=== PATIENT | male | born 1965 | race Caucasian/White ===

== ENCOUNTER 2020-03-06 16:17 | Emergency (ER) | payer OTHER ==
[2020-03-06] MEDS ORDERED: HYDROMORPHONE HCL INJ/PF 2 MG/ML AMPULE IV ONE (17:19)
[2020-03-06] MEDS ORDERED: ONDANSETRON HCL INJ/PF 4 MG/2 ML SDV IV ONE (17:19)
--- NOTE | 2020-03-06 17:26 | ER Document Report ---
ED General - General Chief Complaint: Knee Injury Stated Complaint: FALL,RIGHT KNEE PAIN Time Seen by Provider: 03/06/20 17:00 - HPI Notes: Patient is a 54-year-old male, here on vacation from [place]. He was rinsing off his feet, coming off the beach, when he slipped. He states his leg slid backwards, underneath him. He does not believe he had a direct blow to the knee. He heard some loud pops. He states he is tried to bear weight on it since then but has been unable to do so. He denies hitting his head or losing consciousness. No neck or back pain. No other acute complaints or concerns. He currently puts his knee pain at an 8 out of 10. - Related Data Allergies/Adverse Reactions: No Known Allergies Allergy (Unverified 03/06/20 16:24) Home Medications: Allopurinol Past Medical History - General Information source: Patient - Social History Smoking Status: Never Smoker Chew tobacco use (# tins/day): No Frequency of alcohol use: Rare Drug Abuse: None Family History: CVA, Hyperlipidemia, Hypertension Patient has homicidal ideation: No Musculoskeletal Medical History: Reports Hx Gout Past Surgical History: Reports: Hx Orthopedic Surgery - Left hand, right foot Review of Systems - Review of Systems Musculoskeletal: See HPI -: Yes All other systems reviewed and negative Physical Exam - Vital signs Vitals: Temp Pulse Resp BP Pulse Ox 98.1 F 72 16 119/67 98 03/06/20 16:24 03/06/20 16:24 03/06/20 16:24 03/06/20 16:24 03/06/20 16:24 - Notes Notes: This is a pleasant 54-year-old male appears stated age, in no acute distress. Head is normocephalic and atraumatic, pupils are equal round, reactive to light. Mucosa is moist. Heart regular rate and rhythm, lungs are clear to auscultation bilaterally. Examination of the right knee yields a leg held in flexion at the hip and knee. He is obvious deformity noted at the knee with edema, consistent with effusion. Neurovascularly intact distally. Course - Re-evaluation Re-evalutation: 03/06/20 17:28 Patient presents to the emergency department for evaluation. He does appear to be in discomfort, rates his pain an 8 out of 10. He is given Dilaudid and Zofran. His x-ray appears to me to show an intra-articular tibial fracture. Awaiting official radiology read. Will likely place patient in knee immobilizer with crutches, send him back to [place] for further follow-up. 03/06/20 18:08 X-ray findings confirmed by radiology. Will place in a knee immobilizer with crutches. They are instructed on nonweightbearing and need for close follow-up with orthopod. They will be seen on Monday, have an orthopedic service they see in [place]. 03/06/20 18:56 Neurovascularly intact after placement of a knee immobilizer. - Vital Signs Vital signs: Temp Pulse Resp BP Pulse Ox 98.1 F 72 16 119/67 98 03/06/20 16:24 03/06/20 16:24 03/06/20 16:24 03/06/20 16:24 03/06/20 16:24 - Diagnostic Test Radiology reviewed: Image reviewed, Reports reviewed Radiology results interpreted by me: 03/06/20 18:56 Knee X-Ray 03/06/20 00:00 IMPRESSION: 1. Acute impacted comminuted intra-articular fracture of the lateral tibial plateau. Probable involvement of the lateral tibial spine. No definite medial tibial plateau component. 2. Small joint effusion probably lipohemarthrosis. Discharge - Discharge Clinical Impression: Right medial tibial plateau fracture Qualifiers: Encounter type: initial encounter Fracture type: closed Qualified Code(s): S82.131A - Displaced fracture of medial condyle of right tibia, initial encounter for closed fracture Condition: Stable Disposition: HOME, SELF-CARE Instructions: Use of Crutches (OM), Ice & Elevation (OM), Knee Immobilizing Splint ([facility]) Additional Instructions: Take [place] as needed for pain. Please take with food, watch for dizziness, drowsiness, constipation with this medication. Follow-up with an orthopod on Monday. Return to the emergency department with worsening or new concerning symptoms of any sort. Prescriptions: Hydrocodone/Acetaminophen [[place] 5-325 mg Tablet] 1 tab PO Q6HP PRN #16 tablet PRN Reason: For Pain Scale 4-5
--- NOTE | 2020-03-06 17:29 | RADIOLOGY REPORT (SQ) ---
EXAM DESCRIPTION: KNEE LEFT 4 VIEW IMAGES COMPLETED DATE/TIME: 03/06/2020 3:40 pm REASON FOR STUDY: fall COMPARISON: None. NUMBER OF VIEWS: Four views. TECHNIQUE: AP, cross-table lateral, right and left oblique radiographic images acquired of the left knee. LIMITATIONS: None. FINDINGS: MINERALIZATION: Normal. BONES: There is an acute minimally displaced impacted lateral tibial plateau fracture with fracture l ine likely extending to the lateral tibial spine. No definite medial tibial plateau component. The distal femur is intact. Proximal fibula is intact. JOINT: Small anterior joint effusion with fluid fat level consistent with lipohemarthrosis. SOFT TISSUES: Soft tissue swelling. OTHER: No other significant finding. IMPRESSION: 1. Acute impacted comminuted intra-articular fracture of the lateral tibial plateau. Probable involv ement of the lateral tibial spine. No definite medial tibial plateau component. 2. Small joint effusion probably lipohemarthrosis. TECHNICAL DOCUMENTATION: JOB ID: [id number] 2010 [employer]- All Rights Reserved Reading location - IP/workstation name: [email or web address]
[2020-03-06] MEDS ORDERED: HYDROCODONE/ACETAMINOPHEN 5-325 MG (6 TAB/ER DISP) PO PRN (18:07)
[2020-03-06 19:03] VITALS: BP 137/74
== END 2020-03-06 19:02 | disposition home or self-care (01) ==
LOC: ER 16:17
DX: S82.131A Displaced fracture of medial condyle of right tibia, initial encounter for closed fracture (principal); W01.0XXA Fall on same level from slipping, tripping and stumbling without subsequent striking against object, initial encounter
CPT/HCPCS: 99283; 96374; 96375; 73564; J1170; J2405